=== PATIENT | female | born 1975 | race Caucasian/White ===

== ENCOUNTER 2017-05-24 06:31 | Day surgery (SDC) | payer OTHER ==
--- NOTE | 2017-05-21 09:25 | EKG REPORT ---
SEVERITY:- NORMAL ECG - SINUS RHYTHM : Confirmed by: George Laureano MD 21-May-2017 09:25:16
[2017-05-24] MEDS ORDERED: LIDOCAINE 2%/EPINEPHRINE INJ 20 ML VIAL ONE (07:11)
[2017-05-24] MEDS ORDERED: PROPOFOL INJ 200 MG/20 ML VIAL IV ONE (07:16)
[2017-05-24] MEDS ORDERED: FENTANYL CITRATE INJ/PF 250 MCG/5 ML AMPULE ONE (07:16)
[2017-05-24] MEDS ORDERED: MIDAZOLAM 2 MG/2 ML INJ ONE (07:16)
[2017-05-24] MEDS ORDERED: ONDANSETRON HCL INJ/PF 4 MG/2 ML SDV ONE (07:17)
[2017-05-24] MEDS ORDERED: DEXAMETHASONE SOD PHOS INJ 10 MG/1 ML VIAL ONE (07:17)
[2017-05-24] MEDS ORDERED: CEFAZOLIN 1 GM/D5W RTU 1 GM/50 ML RTUPB IV ONE (07:33)
[2017-05-24] MEDS ORDERED: EPHEDRINE SULFATE INJ 50 MG/1 ML AMPULE ONE (08:08)
--- NOTE | 2017-05-24 20:24 | [facility]ARE OPERATIVE REPORT E ---
[facility] Operative Report NAME: MIKALA CRUZ AGE: 42Y DATE OF SURGERY: 05/24/2017 ROOM: PREOPERATIVE DIAGNOSIS: MULTINODULAR GOITER WITH RIGHT NODULE CONCERNING FOR POSSIBLE THYROID CANCER. POSTOPERATIVE DIAGNOSIS: MULTINODULAR GOITER WITH RIGHT NODULE CONCERNING FOR POSSIBLE THYROID CANCER. OPERATIONS: 1. Right thyroid lobectomy. 2. NIM intraoperative nerve monitoring. SURGEON: KIMBERLY HUANG D.O. ANESTHESIA: General endotracheal tube. ANESTHESIA STAFF: STANISLAV Moore. ESTIMATED BLOOD LOSS: 15 mL. FLUIDS: 700 mL. COMPLICATIONS: None. DRAINS: None. SPONGE COUNT: Verified. NEEDLE COUNT: Verified. MATERIALS FORWARDED SPECIMEN: Right thyroid lobe. FINDINGS: 1. Right thyroid lobe. 2. Parathyroid gland prospect superiorly was identified and preserved, and inferiorly-based parathyroid gland prospect was not clearly identified. 3. Right recurrent laryngeal nerve was identified and preserved and adequately stimulated during the case and at the end of the case at 1 mA. 4. There was no concerning lymphadenopathy noted. INDICATIONS: This is a 42-year-old white female who was seen and evaluated in the [facility] office. The patient had been referred for and she complained of a history of multinodular goiter with right thyroid nodule, recently undergoing a fine needle aspiration biopsy with concern for the possibility of a thyroid cancer with a [place] Category 4 being noted. The patient also reported some progression in compressive symptoms as well. After extensive discussion with the patient, as had been recommended by Endocrinology, that she undergo a right thyroid lobectomy. The patient voiced an understanding. Only desired to proceed with right thyroid lobe surgery at present, realizing that she may need to return to the main operating room in 1 to 2 weeks for a completion left thyroid surgery, depending on the permanent pathology findings. The procedure and all of its risks and complications were discussed in detail with the patient. She voiced an understanding, agreed to proceed, and consent was obtained. PROCEDURE: She was taken to the main operating room and placed on the operating room table in the supine position. Appropriate monitors were placed. Using mask and IV access, general anesthesia was induced. She was next transorally intubated with NIM tube without difficulty. The patient was then positioned and prepped for right thyroid surgery. The NIM monitoring system was set up and tested appropriately before beginning the case. There was a planned surgical incision site that was marked, followed by infiltration with local anesthetic with epinephrine. The patient was then prepped and draped in a sterile fashion for thyroid surgery. The skin was incised and carried down through the subcutaneous tissues and platysma. Skin flaps were elevated in a subplatysmal plane. The strap muscles were divided in the midline, and the right thyroid lobe was clearly identified. The superior pole was released with the assistance of endoscopic guidance. Superior and inferior pole vessels were addressed using the Harmonic handpiece. The gland was mobilized onto the anterior tracheal wall. A superior parathyroid gland prospect was identified and preserved. The anterior parathyroid gland prospect was not clearly identified. The right recurrent laryngeal nerve was clearly identified and preserved and was with adequate stimulation during the case, as well as at the end at 1 mA. The area of Lemos ligament was released. The Harmonic handpiece was also used to divide the thyroid isthmus without difficulty. The wound bed was thoroughly irrigated and suctioned, with adequate hemostasis being noted. Bipolar electrocautery was also used during the case for adequate hemostasis. A 2 x 2 cm piece of Surgicel was placed into the wound bed overlying the recurrent laryngeal nerve. Next, strap muscles were reapproximated with Vicryl suture, as was the platysma layer and deeper subcutaneous tissues. At this point, Monocryl suture was used to reapproximate the deep dermal layer and skin margins. At this point, the skin was cleaned and dried, followed by placement of Mastisol and Steri-Strips. The patient was then returned to the Anesthesia staff and was allowed to emerge from general anesthesia. The patient was extubated in the main operating room and was then transported to the postanesthesia recovery unit in stable condition. There were no complications. DICTATING PHYSICIAN: KIMBERLY HUANG D.O. [id number] PHY#: [id number] ID: [id number] JOB#: [id number] ACCT: [id number] cc:KIMBERLY HUANG D.O. >
== END 2017-05-24 12:40 | disposition home or self-care (01) ==
LOC: SC 06:31
PROVIDERS: ATTEND Otolaryngology
PROC: 0GTH0ZZ Resection of Right Thyroid Gland Lobe, Open Approach (ICD-10-PCS; principal; 2017-05-24 07:30)
DX: D49.7 Neoplasm of unspecified behavior of endocrine glands and other parts of nervous system (principal); E04.2 Nontoxic multinodular goiter; R13.10 Dysphagia, unspecified
CPT/HCPCS: 93005; 88307 ×2; 93010; 60220; J2250; J0690; J3490 ×2; J3010; J2405; J2704; J1100